=== PATIENT | female | born 1990 | race Caucasian/White ===

== ENCOUNTER → 2021-05-22 08:50 | Outpatient (BNVA) | payer SELFPAY | PROVIDERS: Visit Provider Family Medicine | DX: R10.9 Unspecified abdominal pain (principal); F41.1 Generalized anxiety disorder; N20.0 Calculus of kidney; Z76.89 Persons encountering health services in other specified circumstances | CPT/HCPCS: 80053; 81000; 85025 ==

== ENCOUNTER → 2021-08-09 17:27 | Outpatient (BNVA) | payer SELFPAY | PROVIDERS: Visit Provider Registered Nurse Neonatal Intensive Care | DX: S99.911A Unspecified injury of right ankle, initial encounter (principal); W17.2XXA Fall into hole, initial encounter | CPT/HCPCS: 73610 ==

== ENCOUNTER 2022-07-01 08:45 | Emergency (ER) | payer SELFPAY ==
[2022-07-01 09:05] VITALS: BP 167/102; PULSE 70; TEMP 37.1; O2SAT 100; BMI 43.2
[2022-07-01 11:13] VITALS: BP 125/87; PULSE 80; RESP 16; O2SAT 100
--- NOTE | 2022-07-01 11:32 | ED_ITS ---
HPI - Abdominal Pain General: Chief Complaint: Abdominal Pain Stated Complaint: abd pain Time Seen by Provider: 07/01/22 11:04 History of Present Illness: Patient arrives to the ER with complaints of abdominal pain with nausea and vomiting. This pain is epigastric in nature and started approximately midnight. Patient not been around any sick contacts. Patient has tried taking Tums and she could not keep those down. Pain is worse when she eats or drinks. Patient has not had this pain before. MD elicited complaint: abdominal pain Pertinent past history: none Onset (ago): hour(s) (Started midnight last night) Pain Consistency: constant Location: Epigastric Severity: moderate Quality: aching and burning Radiation: none Migration to: no migration Exacerbating factors: eating Relieving factors: nothing Associated Symptoms: Reports anorexia, nausea and vomiting; Denies chills, dysuria and fever(s) Review of Systems General: Reports: 10 or more systems reviewed and unremarkable except in HPI and below Const: Denies: fever(s) or chills Eyes: Denies: change in vision or photophobia ENMT: Denies: throat pain or odynophagia Card: Denies: chest pain, palpitations or irregular heart rhythm Resp: Denies: dyspnea, productive cough or non-productive cough GI: Reports: abdominal pain, nausea and vomiting : Denies: flank pain, difficulty voiding or dysuria Musc: Denies: neck pain or back pain Skin/Breast: Denies: rash or pruritus PFS ED PFSH: Social History Smoking and tobacco status: current every day smoker Alcohol intake: never Substance/Drug Use: current Substance/Drug use frequency: daily Physical Exam Const: COMMON NORMALS: no acute distress, average body habitus, patient oriented x3, no limitations, healthy appearing, alert and well nourished HENMT: COMMON NORMALS: normocephalic, atraumatic, hearing grossly normal bilaterally, external ears normal, Normal external nose present and moist oral mucous membranes HEAD & SCALP: normocephalic and atraumatic NOSE: Normal external nose present EXTERNAL EAR: Yes external ears normal Eye: COMMON NORMALS: Equal, round and reactive pupils present, EOMs intact bilaterally, conjunctivae normal and no scleral icterus CONJUNCTIVA: Yes conjunctivae normal PUPIL: Yes Equal, round and reactive pupils present Neck/C-Spine: COMMON NORMALS: full ROM, no lymphadenopathy, no meningeal signs, no JVD and Thyroid normal THYROID: Thyroid normal Lymph: LYMPHATIC: no lymphadenopathy noted Chest: COMMONS NORMALS: normal inspection of the chest and normal palpation of entire chest wall Resp: COMMON NORMALS: normal respiratory effort, No retractions, No use of accessory muscles and clear to auscultation bilaterally AUSCULTATION: clear to auscultation bilaterally Cardio: COMMON NORMALS: no JVD, regular rate, regular rhythm, S1 normal heart sound present, S2 normal heart sound present, No gallops present (Cardio), No clicks present (Cardio), No murmurs present (Cardio) and No rub (Cardio) RATE: regular rate RHYTHM: regular rhythm HEART SOUNDS: S1 normal heart sound present and S2 normal heart sound present GI: COMMON NORMALS: Normal to inspection, nondistended, normoactive bowel sounds present and Soft to palpation PALPATION: Yes Soft to palpation and Yes Tenderness to palpation present (GI) Details: other (Epigastric area) : COMMON NORMALS: Yes no CVA tenderness BLADDER/KIDNEY EXAM: Yes no CVA tenderness Back/Pelvis: COMMON NORMALS: no CVA tenderness Neuro: COMMON NORMALS: patient oriented x3 SENSORIUM/ORIENTATION: Yes alert MENINGEAL SIGNS: Yes no meningeal signs Course Vital Signs: Vital signs: Vital Signs Temperature 98.8 F 07/01/22 09:05 Pulse Rate 80 07/01/22 11:13 Respiratory Rate 16 07/01/22 11:13 Blood Pressure 125/87 07/01/22 11:13 Pulse Oximetry 100 07/01/22 11:13 Oxygen Delivery Me thod Room Air 07/01/22 11:13 MDM - Abdominal Pain Medical Decision Making Patient presents to the ER with complaints of abdominal pain nausea vomiting. Physical exam was performed which did show right upper quadrant tenderness to palpation. Lab work was obtained which did show significantly elevated liver enzymes total bilirubin of 1.5 and AST of 614 ALT of 292 and alkaline phos of approximately 120, CT was obtained that showed abnormal gallbladder, mild pericholecystic fluid suspicious for large stone in the lumen. Ultrasound was obtained which showed cholelithiasis with a small amount of sludge, gallbladder wall is a top size and normal. MRCP showed cholelithiasis no biliary obstruction no unremarkable appearance of the liver. Patient was informed of these results as well as Dr. Nielson surgeon was called and suggested inpatient admission. When patient was told of this she states she lives out of town and has to leave first thing tomorrow morning to make other previously arranged appointments. Patient states she wants to follow-up with her PCP who can refer her to a surgeon and/or her GI doc at there. Patient was explained the leaving AGAINST MEDICAL ADVICE policy she accepts the risks and still wishes to leave. Differential Diagnosis Likely gastroenteritis; Unlikely abdominal pain, acute appendicitis, calculus of kidney, constipation, diverticulitis, endometriosis, pancreatitis or small bowel obstruction Medical Records . Lab Data 07/01/22 11:25 07/01/22 11:25 Labs/Radiology: Radiology Impressions Abdomen/Pelvis CT 07/01/22 12:01 IMPRESSION: 1. Abnormal gallbladder. Mild pericholecystic fluid and suspicious for large stone within the lumen. No bile duct dilatation. Evaluation by ultrasound may provide additional information. 2. Normal appendix. 3. No renal obstruction. 4. No GI tract obstruction. 5. Solid mass RIGHT anterior abdominal wall. Differential includes sebaceous or epidermoid cyst. Abdomen Ultrasound 07/01/22 14:49 IMPRESSION: 1. Cholelithiasis with a small amount of sludge. Gallbladder wall is top normal size. In the correct clinical setting findings are suspicious for acute cholecystitis. Gallbladder is slightly contracted and small size. 2. No bile duct dilatation. Cholangiopancreatography MRI 07/01/22 15:46 IMPRESSION: 1. Cholelithiasis. No biliary obstruction. Unremarkable appearance of the liver. 2. Findings compatible with a sebaceous or epidermal inclusion cyst within the right anterolateral upper abdominal wall. Laboratory Results WBC 7.9 10^3/uL (4.0-10.0) 07/01/22 11:25 RBC 4.90 10^6/uL (4.1-5.3) 07/01/22 11:25 Hgb 12.3 g/dL (11.5-15.3) 07/01/22 11:25 Hct 39.5 % (37.0-47.0) 07/01/22 11:25 MCV 80.6 fl (81-99) L 07/01/22 11:25 MCH 25.1 pg (28.0-34.0) L 07/01/22 11:25 MCHC 31.1 g/dL (30.0-36.0) 07/01/22 11:25 RDW 13.1 % (12.1-15.1) 07/01/22 11:25 Plt Count 281 10^3/cmm (130-400) 07/01/22 11:25 MPV 10.1 fL (7.4-10.4) 07/01/22 11:25 Neut % (Auto) 77.3 % 07/01/22 11:25 Lymph % (Auto) 15.5 % 07/01/22 11:25 [place] % (Auto) 6.2 % 07/01/22 11:25 Eos % (Auto) 0.3 % 07/01/22 11:25 Baso % (Auto) 0.4 % 07/01/22 11:25 Neut # (Auto) 6.15 10^3/uL (1.8-7.7) 07/01/22 11:25 Lymph # (Auto) 1.2 10^3/uL (0.8-4.8) 07/01/22 11:25 [place] # (Auto) 0.5 10^3/uL (0.2-0.9) 07/01/22 11:25 Eos # (Auto) 0.0 10^3/uL (0.0-0.8) 07/01/22 11:25 Baso # (Auto) 0.0 10^3/uL (0.0-0.1) 07/01/22 11:25 Nucleated RBC % (auto) 0 % 07/01/22 11:25 Nucleated RBCs # 0.0 /100WBC 07/01/22 11:25 Sodium 138 mmol/L (136-145) 07/01/22 11:25 Potassium 4.0 mmol/L (3.5-5.1) 07/01/22 11:25 Chloride 104 mmol/L (98-107) 07/01/22 11:25 Carbon Dioxide 22 mmol/L (22-29) 07/01/22 11:25 Anion Gap 16.0 (5-19) 07/01/22 11:25 BUN 7 mg/dL (6-20) 07/01/22 11:25 Creatinine 0.5 mg/dL (0.5-0.9) 07/01/22 11:25 GFR Calculation 144.9 mL/min (90-130) H 07/01/22 11:25 Glucose 108 mg/dL (65-115) 07/01/22 11:25 Calculated Osmolality 285 mOsm/kg (285-295) 07/01/22 11:25 Calcium 8.7 mg/dL (8.5-10.5) 07/01/22 11:25 Magnesium 1.9 mg/dL (1.7-2.3) 07/01/22 11: Total Bilirubin 1.5 mg/dL (0.15-1.2) H 07/01/22 11:25 AST 614 U/L (0-32) H 07/01/22 11:25 ALT 292 U/L (0-33) H 07/01/22 11:25 Alkaline Phosphatase 118 U/L (35-105) H 07/01/22 11:25 Total Protein 7.0 g/dL (6.6-8.7) 07/01/22 11: Albumin 4.2 g/dL (3.5-5.2) 07/01/22 11: Globulin 2.8 g/dL (1.3-4.6) 07/01/22 11: Lipase 63 U/L (13-60) H 07/01/22 11:25 HCG, Qual Negative (Negative) 07/01/22: Urine Color Dark yellow (Yellow) 07/01/22: Urine Appearance Clear (CLEAR) 07/01/22: Urine pH 9 (5-7) H 07/01/22: Ur Specific [place] 1.010 (1.005-1.030) 07/01/22: Urine Protein Neg (Negative) 07/01/22 Urine Glucose (UA) Norm (Normal) 07/01/22 Urine Ketones Negative (Negative) 07/01/22 Urine Blood Neg (Negative) 07/01/22 Urine Nitrate Negative (Negative) 07/01/22 Urine Bilirubin Neg (Negative) 07/01/22: Prot Sulfosalicylic Acd Negative (Negative) 07/01/22 Urine Urobilinogen Norm mg/dL (Negative) 07/01/22 Ur Leukocyte Esterase Negative (Negative) 07/01/22 15:29 Discharge Plan Discharge Patient Disposition: Admitted As Inpatient Clinical Impression: Elevated liver enzymes, Right upper quadrant abdominal pain Nausea & vomiting Qualifiers: Vomiting type: unspecified Qualified Code(s): R11.2 - Nausea with vomiting, unspecified Condition: Stable Coding Level of Care Code ED Store Operations Specialist for Sarai Garcia
[2022-07-01 11:42] LABS: Basophils % 0.4 %; Eosinophils % 0.3 %; Hematocrit 39.5 % (37.0-47.0); Hemoglobin 12.3 g/dL (11.5-15.3); Lymphocytes # 1.2 10^3/uL (0.8-4.8); Lymphocytes % 15.5 %; Mean Corpuscular HGB Conc 31.1 g/dL (30.0-36.0); Mean Corpuscular Hemoglobin 25.1 pg (28.0-34.0); Mean Corpuscular Volume 80.6 fl (81-99); Mean Platelet Volume 10.1 fL (7.4-10.4); Monocytes # 0.5 10^3/uL (0.2-0.9); Monocytes % 6.2 %; Neutrophils # 6.15 10^3/uL (1.8-7.7); Neutrophils % 77.3 %; Nucleated Red Blood Cells % 0 %; Platelet Count 281 10^3/cmm (130-400); Red Cell Distribution Width 13.1 % (12.1-15.1); White Blood Count 7.9 10^3/uL (4.0-10.0)
--- NOTE | 2022-07-01 11:43 | PC.PHAR ---
pt fills her medications as fina [facility] in [place] [phone]-pt states she hasnt started taking the vitamin d3 5000 units daily or vitamin b12 2500mcg daily as of 07/01/22
[2022-07-01] MEDS: lidocaine 2% viscous 15 ML, aluminum-mag hydrox-simethicon 30 ML, sucralfate oral liq 1 GM PO (11:48)
[2022-07-01 11:58] LABS: Alanine Aminotransferase 292 U/L (0-33); Albumin Level 4.2 g/dL (3.5-5.2); Alkaline Phosphatase 118 U/L (35-105); Aspartate Amino Transferase 614 U/L (0-32); Blood Urea Nitrogen 7 mg/dL (6-20); Calcium 8.7 mg/dL (8.5-10.5); Carbon Dioxide 22 mmol/L (22-29); Chloride 104 mmol/L (98-107); Globulin 2.8 g/dL (1.3-4.6); Glomerular Filtration Rate 144.9 mL/min (90-130); Glucose 108 mg/dL (65-115); HCG, Serum Qual Negative (Negative); Lipase 63 U/L (13-60); Magnesium 1.9 mg/dL (1.7-2.3); Osmolality Calculated 285 mOsm/kg (285-295); Sodium 138 mmol/L (136-145); Total Bilirubin 1.5 mg/dL (0.15-1.2)
--- NOTE | 2022-07-01 12:01 | CT_ITS ---
WS: [id number] CT ABDOMEN AND PELVIS WITH CONTRAST HISTORY: Epigastric pain, elevated lfts, TECHNIQUE: Imaging performed of the abdomen and pelvis with IV contrast. Single phase imaging of the abdomen. Coronal and sagittal reformats are submitted. All CT scans at [facility] use at [address] one of these dose optimization techniques: automated exposure control; mA and/or kV adjustment per patient size (includes targeted exams where dose is matched to clinical indication); or iterative re construction. IV CONTRAST: Omnipaque 350; 100 mL IV. Oral contrast: No DLP: 1199.03 mGy.cm COMPARISON: None available. Lower thorax: Lung bases are clear. Heart is normal size. No hiatal hernia. Liver/biliary system: Normal size with no intrahepatic dilatation. Gallbladder: Abnormal gallbladder. There is wall thickening and enhancement. There may be a large sto ne within the gallbladder lumen. This can be further evaluated by ultrasound. Mild pericholecystic in flammation. Common bile duct is not dilated. Pancreas: Normal size pancreas and pancreatic duct. No adjacent inflammation. Spleen: Normal size spleen. No mass or infarct. Adrenal glands: Normal. Right kidney: Normal. Left kidney: Normal. Aorta: Normal. Lymphadenopathy: None. Free fluid: None. GI tract: Normal stomach. No small bowel obstruction. No colon obstruction. Normal appendix. Mild div erticulosis without acute diverticulitis. Abdominal wall: Unremarkable abdominal wall. No hernia. Well-circumscribed mass within the RIGHT abdo jennifer wall at the level of the liver measures 3.0 x 2.7 cm. Favor benign sebaceous cyst/epidermoid cy st. Pelvis: Tiny amount of free fluid in the cul-de-sac. Bones: Unremarkable. CT/CT abdomen pelvis w con* [id number] IMPRESSION: 1. Abnormal gallbladder. Mild pericholecystic fluid and suspicious for large s tone within the lumen. No bile duct dilatation. Evaluation by ultrasound may pr ovide additional information. 2. Normal appendix. 3. No renal obstruction. 4. No GI tract obstruction. 5. Solid mass RIGHT anterior abdominal wall. Differential includes sebaceous o r epidermoid cyst.
[2022-07-01] MEDS: iohexol 350 mg/mL 500 mL Btl (per mL) IV (13:56)
--- NOTE | 2022-07-01 14:49 | US_ITS ---
WS: [id number] RIGHT UPPER QUADRANT ULTRASOUND HISTORY: abnormal gb per ct, abnormal lfts, ruq abd pain COMPARISON: None available. Liver: 16.2 cm in length. Normal size liver and echogenicity. No bile duct dilatation or mass. Portal Vein: Normal hepatopetal flow with monophasic waveform. Gallbladder: Slightly contracted gallbladder. There is a moderate size stone within the lumen of the gallbladder with a small amount of sludge. No pericholecystic fluid. Gallbladder wall is top limits n ormal. CBD: 0.3 cm Pancreas: Portions of the head and tail are obscured. The body is negative. Right kidney: 11.6 cm in length. Normal size and echogenicity. No hydronephrosis or mass. Aorta and IVC: Unremarkable abdominal aorta and IVC. No ascites. US/US abdomen limited [id number] IMPRESSION: 1. Cholelithiasis with a small amount of sludge. Gallbladder wall is top bekah l size. In the correct clinical setting findings are suspicious for acute laura cystitis. Gallbladder is slightly contracted and small size. 2. No bile duct dilatation.
--- NOTE | 2022-07-01 15:46 | MRR_ITS ---
PROCEDURE INFORMATION: Exam: MR Abdomen Without Contrast Exam date and time: 07/01/2022 5:49 PM Age: 31 years old Clinical indication: Abdominal pain; Generalized; Additional info: Cholelithiasis, elevated lfts and bilirubin TECHNIQUE: Imaging protocol: Magnetic resonance imaging of the abdomen without contrast. COMPARISON: CT abdomen pelvis w con* [id number] 07/01/2022 1:46 PM FINDINGS: Liver: Normal. No mass. Gallbladder and bile ducts: Cholelithiasis. No gallbladder distention. No ductal dilation. Pancreas: Unremarkable. No ductal dilation. Spleen: Unremarkable. No splenomegaly. Adrenal glands: Unremarkable. No mass. Kidneys and ureters: Unremarkable. No solid mass. No hydronephrosis. Stomach and bowel: Visualized stomach and intestines are unremarkable. Intraperitoneal space: No free fluid. Vasculature: No abdominal aortic aneurysm. Bones/joints: Unremarkable. Soft tissues: Ovoid fluid-filled structure seen within the subcutaneous tissues of the right anterolateral upper abdomen just below the skin surface measuring 3 cm in size. MR/MR MRCP [id number] IMPRESSION: 1. Cholelithiasis. No biliary obstruction. Unremarkable appearance of the liver. 2. Findings compatible with a sebaceous or epidermal inclusion cyst within the right anterolateral upper abdominal wall.
[2022-07-01 15:51] LABS: Add Urine Microscopic? NO; Charge for UA Resulting for Rev
[2022-07-01] MEDS: ondansetron 2 mg/ML SDV 2 mL 4 MG IVP (16:00)
[2022-07-01] MEDS: morphine 4 mg/mL SDV 1 mL IVP (16:01)
[2022-07-01 16:09] LABS: Urine Appearance Clear (CLEAR); Urine Color Dark Yellow (Yellow); pH Urine 9 (5-7)
[2022-07-01 16:10] LABS: Bilirubin Urine Neg (Negative); Blood Urine Neg (Negative); Glucose Urine UA Norm (Normal); Ketones Urine Negative (Negative); Leukocyte Esterase Urine Negative (Negative); Nitrate Urine Negative (Negative); Protein Urine Neg (Negative); Sulfosalicylic Acid Urine Negative (Negative); Urobilinogen Urine Norm (Negative)
--- NOTE | 2022-07-07 14:23 | DCPLANNER ---
commercial development manager was triggered to call patient due to no primary care physician - patient sees Dr. Olson.
== END 2022-07-01 19:37 | disposition admitted as inpatient to this hospital (09) ==
PROVIDERS: Family Medicine; Emergency Provider Emergency Medicine; PCP Family Medicine
DX: K80.20 Calculus of gallbladder without cholecystitis without obstruction (principal); R74.8 Abnormal levels of other serum enzymes; R11.2 Nausea with vomiting, unspecified; F17.210 Nicotine dependence, cigarettes, uncomplicated
CPT/HCPCS: 36415; 74177; 74181; 76705; 80053; 81003; 83690; 83735; 84703; 85025; 96374; 96375; 99285; J2270; J2405; Q9967